=== PATIENT | female | born 1980 | race Caucasian/White ===

== ENCOUNTER → 2018-05-03 | Outpatient (CLI) | payer OTHER | END | disposition home or self-care (01) | LOC: NST 15:52 | DX: Z34.83 Encounter for supervision of other normal pregnancy, third trimester (principal) ==

== ENCOUNTER 2018-05-31 10:30 | Inpatient (IN) | payer OTHER ==
[~2018-05-31] VITALS: Ht 167.6 cm; Wt 85.3 kg
[2018-06-19] MEDS ORDERED: OBSTETRIX DHA1 EACH PO (09:18)
== END 2018-06-20 13:49 | DRG 807 ==
LOC: LDR 06-18 06:47 → OB/GYN 06-18 08:31
PROVIDERS: ADMIT Obstetrics & Gynecology Maternal & Fetal Medicine
PROC: 10E0XZZ Delivery of Products of Conception, External Approach (ICD-10-PCS; principal; 2018-06-18)
PROC: 0KQM0ZZ Repair Perineum Muscle, Open Approach (ICD-10-PCS; 2018-06-18)
PROC: 4A1HXCZ Monitoring of Products of Conception, Cardiac Rate, External Approach (ICD-10-PCS; 2018-06-18)
DX: O70.1 Second degree perineal laceration during delivery (principal); Z37.0 Single live birth; Z3A.39 39 weeks gestation of pregnancy

== ENCOUNTER 2018-06-14 10:55 | Outpatient (CLI) | payer OTHER | END 2018-06-14 12:22 | disposition home or self-care (01) | LOC: NST 10:55 | DX: Z34.83 Encounter for supervision of other normal pregnancy, third trimester (principal) ==